=== PATIENT | male | born 1940 | race Caucasian/White ===

== ENCOUNTER 2018-08-07 09:27 | Inpatient (IN) | payer OTHER ==
[~2018-08-07] VITALS: Ht 167.6 cm; Wt 122.5 kg
[2018-08-07 09:35] VITALS: Ht 167.6 cm; Wt 122.5 kg
--- NOTE | 2018-08-07 09:49 | NUR ---
PT BIB [facility]. PER MEDIC PT FELT DIZZY AFTER GETTING UP THIS MORNING AND WAS FOUND ON THE FLOOR. PT AAOX3, NO S/S OF DISTRESS NOTED. PT STARTED ON NS PRIOR TO ARRIVAL. PT HAS APPEARS PALE AND SLOW TO RESPOND. PT HAS AN COLOSTOMY, DARK RED NOTED INSIDE OSTOMY BAG. PT STATES OSTOMY WAS PLACED A WEEK AGO AND WAS PRESCRIBED ANTIBIOTCS DUE TO INFECTION X 1 WEEK.
[2018-08-07 10:19] LABS: CARBON DIOXIDE 23.4 mmol/L (21-32); CHLORIDE SERUM 110 mmol/L (98-107); CREATININE SERUM 1.2 mg/dL (0.7-1.3); GLUCOSE SERUM 125 mg/dL (74-106); POTASSIUM SERUM 4.7 mmol/L (3.5-5.1); SODIUM SERUM 142 mmol/L (136-145)
[2018-08-07 10:23] LABS: ALKALINE PHOSPHATASE 190 U/L (46-116); ALT/SGPT 41 U/L (16-63); AST/SGOT 56 U/L (15-37); BILIRUBIN TOTAL 0.4 mg/dL (0.20-1.00)
[2018-08-07 10:26] LABS: ALBUMIN 2.3 g/dL (3.4-5.0); TOTAL PROTEIN, SERUM 5.6 g/dL (6.4-8.2)
[2018-08-07 10:33] LABS: BASOPHIL % 0.1 % (0-2)
[2018-08-07 10:34] LABS: PLATELET COUNT 532 x10^3mcL (130-400); RED CELL DISTRIBUTION WIDTH 18.4 % (11.5-14.5)
--- NOTE | 2018-08-07 10:58 | NUR ---
PT SITTING UP IN BED NO S/S OF DISTRESS NOTED. PT STATED HE WAS THIRSTY WATER WAS GIVEN TO PT.
--- NOTE | 2018-08-07 12:02 | NUR ---
PT TAKEN FOR ULTRA SOUND.
--- NOTE | 2018-08-07 12:11 | NUR ---
PT BACK FROM CT WITHOUT INCIDENCE.
--- NOTE | 2018-08-07 13:26 | NUR ---
PT SLEEPING IN BED, VISIBLE RISE AND FALL OF CHEST. PT EASILY AROUSABLE. NO S/S OF DISTRESS NOTED.
[2018-08-07] MEDS ORDERED: CIPRO500 MG PO (13:43)
[2018-08-07] MEDS ORDERED: TAMSULOSIN HCL0.4 MG PO (13:44)
[2018-08-07] MEDS ORDERED: ELIQUIS5 MG PO (13:45)
[2018-08-07] MEDS ORDERED: ATORVASTATIN CA40 M1 PO (13:45)
[2018-08-07] MEDS ORDERED: CLOPIDOGREL75 M1 PO (13:45)
[2018-08-07] MEDS ORDERED: ASPIR 8181 MG PO (13:46)
[2018-08-07] MEDS ORDERED: CARVEDILOL3.125 M1 PO (13:46)
[2018-08-07] MEDS ORDERED: STOOL SOFTENER100 MG PO (13:47)
--- NOTE | 2018-08-07 14:17 | NUR ---
PT PROVIDED WITH LUNCH TRAY, SITTING UP IN ED MICHELERSANJANA EATING, A/O X4, RESPS EVEN AND UNLABORED, NO DISTRESS NOTED.
--- NOTE | 2018-08-07 14:29 | NUR ---
DR. ALICEA AT BEDSIDE DISCUSSING TEST RESULTS AND PLAN OF CARE WITH PT.
--- NOTE | 2018-08-07 14:30 | NUR ---
REPORT GIVEN TO HILL MAYES RN.
[2018-08-07 15:37] VITALS: BP 113/69
--- NOTE | 2018-08-07 15:41 | NUR ---
AYDEN TELEPHONE ORDERED TYLENOL PO AND BENADRYL PO TO BE GIVEN BEFORE EACH UNIT TRANSFUSED AND LASIX 20 MG PO TO BE GIVEN AFTER EACH UNIT TRANSFUSED.
--- NOTE | 2018-08-07 15:44 | NUR ---
RECEIVED PT FROM ED VIA ALANNA. ORIENTED PT TO ROOM AND SURROUNDINGS. IV NOTED TO LAC PATENT AND INTACT. TELE 35 PLACED ON PT READING SR WITH DEPRESSED ST SEGMENT. INSTRUCTED PT ON THE USE OF CALL LIGHT FOR ASSISTANCE. ENDORSED PT TO PRIMARY NURSE RENETTA
--- NOTE | 2018-08-07 16:19 | NUR ---
PT RESTING IN BED, CALL LIGHT WITHIN REACH, NO RESPRIATORY DISTRESS NOTED, DENIES PAIN.
[2018-08-07 17:10] VITALS: BP 113/63
--- NOTE | 2018-08-07 17:10 | NUR ---
PATIENT RESTING IN BED, TYLENOL PO & BENADRYL PO GIVEN PRE TRANSFUSION. PRE TRANSFUSION VITAL SIGNS TAKEN. BLOOD TRANSFUSION INITIATED. WITNESSED BY RENETTA HALLMAN. BLOOD NOW TRANSFUSING, PATIENT EDUCATION ON S/S OF POSSIBLE ADVERSE REACTIONS AND TOLD TO INFORM NURSING STAFF IMMEDIATELY. WILL REMAIN IN ROOM FOR 15 MINS.
[2018-08-07 17:25] VITALS: BP 105/66
--- NOTE | 2018-08-07 17:25 | NUR ---
PATIENT IN BED, BLOOD TRANSFUSING. NO ADVERSE REACTIONS OBSERVED, DENIES PAIN, CHILLS, N/V. VITAL SIGNS STABLE. INCREASE BLOOD TRANSFUSION FROM 70 ML TO 100 ML/HR. WILL CONTINUE TO MONITOR.
--- NOTE | 2018-08-07 18:04 | NUR ---
PT RESTING IN BED, NO RESPIRATORY DSITRESS NOTED, DENIES PAIN, BLOOD TRANSFUSING WITHOUT INCIDENT. WITNESSED PT SIGN CONSENT FOR EGD, COLONOSCOPY, AND ANESTHESIA. PT A+OX4 AND AGRAABLE TO PROCEDURES. PT AWARE HE IS NPO. CALL LIGHT WITHIN REACH. BEDSIDE COMMODE PLACED AT BEDSIDE. PT EDUCATED ON FALL RISK AND NOT TO GET UP ALONE.
--- NOTE | 2018-08-07 18:11 | NUR ---
PT STATES THERE HAS BEEN NO OUTPUT FROM COLOSTOMY BAG IN SEVERAL DAYS.
--- NOTE | 2018-08-07 18:33 | NUR ---
REPORT GIVEN TO LAY HALLMAN ICU. ENDORSED ALL CARE.
--- NOTE | 2018-08-07 18:35 | NUR ---
RECEIVED REPORT FROM LUIS MIGUEL HALLMAN TO ASSUME CARE
--- NOTE | 2018-08-07 18:45 | NUR ---
RECEIVED PT FROM [facility] VIA [facility] ACCOMPANIED BY LUIS MIGUEL HALLMAN AND NING. PT WAS TRANSFERRED ONTO BED 5 WITH NO COMPLICATIONS. PT CONNECTED TO CRANE CHASER, VITALS READING: HR 75, BP 146/66 (86), RR 19, SPO2 100%, ORAL TEMP 97.5. PT IS A/OX4. SPEECH IS CLEAR. ABLE TO MAKE NEEDS KNOWN. ABLE TO FOLLOW COMMANDS. LUNGS SOUND CLEAR TO BUL AND DIMIN TO BLL. PT ON 2 L NC. BREATHING IS E/U. DENIES ANY SOB. SYMMETRICAL CHEST EXPANSION NOTED. PALPABLE PULSES X4 EXTREMETIES. SKIN IS COOL TO TOUCH. CAP REFILL < 3 SECS. NO EDEMA NOTED. LAC IV INTACT/SECURED/DRESSING CDI. PRBC INFUSING @ 100 ML/HR. GENERALIZED WEAKNESS. ACTIVE FULL ROM X4 EXTREMETIES. PT NPO. ABD IS SOFT, FLAT, NONTENDER TO PALPATION. BOWEL SOUNDS ACTIVE X 4 QUADRANTS. COLOSTOMY BAG NOTED WITH LOOSE BLOODY STOOL. SKIN IS INTACT. ECCHYMOSIS NOTED TO BUE. PT CALM AT THIS TIME. PT ORIENTED TO ROOM AND USE OF CALL LIGHT. BED IN LOW POSITION. WILL CONT TO MONITOR
[2018-08-07 19:05] VITALS: BP 123/64
--- NOTE | 2018-08-07 20:10 | NUR ---
PRBC BLOOD TRANSFUSION COMPLETED AT THIS TIME. POST INFUSION VITALS: TEMP 97.7, HR 74, BP 118/74, RR 14, SPO2 100%. NO ADVERSE REACTION NOTED. WILL CONT TO MONITOR
--- NOTE | 2018-08-07 20:18 | NUR ---
2ND UNIT OF PRBC INITIATED AT THIS TIME. WITNESSED BY KAREEN HALLMAN AND MYSELF. PRE INFUSION VITALS: TEMP 97.5, HR 62, BP 120/62, RR 18, SPO2 100%. WILL CONT TO MONITOR
--- NOTE | 2018-08-07 23:05 | NUR ---
PRBC INFUSION COMPLETED. POST INFUSION VITALS: TEMP 97.5, HR 62, BP 120/62, RR 18, SPO2 100%. NO ADVERSE REACTION NOTED. WILL CONT TO MONITOR
[2018-08-07 23:38] VITALS: BP 111/60
--- NOTE | 2018-08-08 00:20 | NUR ---
WARP CHANGER AT BEDSIDE
[2018-08-08 00:35] LABS: microscopic required? NO
[2018-08-08 00:42] LABS: UA SPECIFIC GRAVITY >=1.030 (1.005-1.035); urine erythrocyte NEGATIVE (NEGATIVE)
[2018-08-08 03:34] VITALS: BP 102/57
[2018-08-08 05:34] LABS: BASOPHIL % 0.3 % (0-2)
[2018-08-08 05:36] LABS: PLATELET COUNT 423 x10^3mcL (130-400)
[2018-08-08 05:37] LABS: RED CELL DISTRIBUTION WIDTH 20.2 % (11.5-14.5)
[2018-08-08 05:53] LABS: CALCIUM 7.9 mg/dL (8.5-10.1); CARBON DIOXIDE 24.3 mmol/L (21-32); CHLORIDE SERUM 110 mmol/L (98-107); CREATININE SERUM 1.1 mg/dL (0.7-1.3); GLUCOSE SERUM 85 mg/dL (74-106); MAGNESIUM 1.7 mg/dL (1.8-2.4); POTASSIUM SERUM 3.3 mmol/L (3.5-5.1); SODIUM SERUM 145 mmol/L (136-145)
[2018-08-08 06:25] LABS: rbc morphology (normal/abnorm) ABNORMAL (NORMAL)
[2018-08-08 06:29] LABS: acanthocyte (spur cell) 3+; ovalocyte/elliptocyte 1+; schistocyte (helmet cell) 1+
--- NOTE | 2018-08-08 07:13 | NUR ---
REPORT GIVEN TO LESVIA HALLMAN TO ASSUME CARE
[2018-08-08 07:20] VITALS: BP 117/57
--- NOTE | 2018-08-08 07:20 | NUR ---
THE PATIENT AWAKE AND ORIENTED TO PERSON, PLACE AND TIME. THE PATIENT DENIED SHORTNESS OF BREATH, NAUSEA/VOMITING OR PAIN AT THIS TIME. IVF NS RUNNING AT 100CC/HR. VIA HL TO LAC. ANOTHER HL TO RFA. TELE # 5 READS NORMAL SINUS RHYTHMS. COLOSTOMY WITH WATERY STOOL. CALL LIGHT WITHIN REACH. SIDE RAILS UP X3. BED WAS AT LOWEST POSITION. ALARM WAS ON.
--- NOTE | 2018-08-08 08:57 | NUR ---
DR. DECKER IN TO SEE THE PATIENT.
--- NOTE | 2018-08-08 09:07 | NUR ---
GI NURSES WERE AT BEDSIDE SETTING UP MACHINES FOR EGD AND COLONOSCOPY.
--- NOTE | 2018-08-08 09:45 | NUR ---
THE PATIENT WAS DROWSY AND RESTING IN BED S/P COLONOSCOPY AND EGD. THE PATIENT WAS RESPONSIVE TO VERBAL STIMULUS; DENIED ANY DISCOMFORT AND BACK TO SLEEP. TELE MONITOR SHOWS SINUS BRADYCARDIA WITH HR 55 OR ABOVE.
[2018-08-08 11:10] VITALS: BP 109/53
--- NOTE | 2018-08-08 13:10 | NUR ---
REPORT WAS GIVEN VIJI ROJAS TO [facility] UNIT. CONCERNS WERE ADDRESSED.
--- NOTE | 2018-08-08 13:40 | NUR ---
THE PATIENT WAS TRANSFERRED TO ROOM 238A ON [facility] VIA BED IN STABLE CONDITION. ALL BELONGINGS WERE SENT TO THE ROOM WITH THE PATIENT.
--- NOTE | 2018-08-08 14:05 | NUR ---
RECEIVED PT FROM ICU, PT IS A/O X4, VERBAL RESPONSIVE, ABLE TO TELL WHAT HE NEEDS. LUNG SOUND CLEAR BILATERAL, NO COUGH, DENY ANY SOB AT THIS TIME, PT IS ON 2L/MIN O2 VIA NC/ PO2 96%, PT DENY ANY CHEST PAIN OR DISCOMFORT, BOWEL SOUND PRESENT ALL 4 QUADRANTS, NO DISTENTION, PT HAS COLOSTOMY BAG, ALL WATERY STOOL NOTED. NO BLEEDING. PEDAL PULSE PRESENT BOTH FEET, NO EDEMA, IV AT RIGHT FA, AND LEFT AC, NO LEAKING, NO INFILTARATION. ALL ADLS ASSIST, ALL NEED MET, CALL LIGHT IN REACH, WILL CONITNUE TO MONITOR.
--- NOTE | 2018-08-08 16:49 | NUR ---
PT C/O HAS 1 EPISODE OF GI BLEEDING. CALLED DR. OLSON, WENT TO HOME CHECK THE PT AT ONCE. WILL CONTINUE TO MONITOR.
[2018-08-08 17:30] VITALS: BP 106/61
--- NOTE | 2018-08-08 18:16 | NUR ---
1730: ASSUMED CARE OF PT. 1810: PT VOICES THAT HE WILL NOT TAKE ANY MEDICATION DUE TO DR'S INSTRUCTION. DR. SPEARS CALLED, ORDERED CLEARED, ADVISED PT NOT TO TAKE ANTICOAGULATS ONLY. INFORMATION RELAYED TO PT. PT AGREES TO TAKE IRON MEDICATION. BENEFITS EXPLAINED TO PT, SIDE EFFECTS, AND INDICATION. PT IN HIGH FOWLERS, DENIES ANY DISCOMFORT, IV SITES TO RFA#20 INFUSING WELL NS 50ML/HR. LAC#20 FLUSHES WELL. EFFORTLESS BREATHING ON 2LPM NASAL CANULA. COLOSTOMY BAG IN PLACE, NO EXTERNAL DRAINAGE NOTED. ULTRASOUND OF BLE COMPLETED. CALL LIGHT WITHIN REACH.
--- NOTE | 2018-08-08 19:50 | NUR ---
PT. AWAKE, ALERT, APPEARS TO BE VERY WEAK. PT. STATED THAT HE OS FATIGUED AND WEAK ALSO. ORIENTED X4. DENIES HEADACHE OR DIZZINESS, SPEECH CLEAR. CONVERSSATION APPROPRIATE. BREATH SOUNDS CLEAR THROUGHOUT LUNG ABURTO, RESP. EVEN, UNLABORED. BLL SLIGHTLY DIMINISHED. PT. ON RA AT THIS TIME. DENIES SOB. PT. ON TELE 6, NSR, DENIES CHESTPAIN OR DISCOMFORT. IV SITE INTACT. NO EDEMA NOTED TO EXTREMITY. PEDAL PULSES STRONG BLE. ABD. SOFT AND FLAT, COLOSTOMY TO DRAINAGE BAG, STOMA APPEARS BEEFY RED. DRAINAGE DARK BROWN, LOOSE. PT. ENCOURAGED TO CALL FOR HELP BEFORE GETTING OOB. BED LOW LAYING W/ ALARM ON. CALL LIGHT WITHIN REACH.
[2018-08-08 20:38] VITALS: BP 97/59
--- NOTE | 2018-08-09 00:26 | NUR ---
PT. SLEEPING. NO COMPLAINTS THUS FAR. NO ACTIVE GI BLEEDING NOTED. WILL CONTINUE TO MONITOR. CALL LIGHT WITHIN REACH.
--- NOTE | 2018-08-09 04:42 | NUR ---
ALERTED BY SHIP PILOT DISPATCHER THAT THE PT.'SEART MONITOR WAS OFF LINE. UPON CHECKING ON PT, TELE MONITOR WAS NOTED AT THE SIDE OF HIS BED AND DISCONNECTED FROM HIM. I INFORMED THE PT. THAT I NEEDED TO REPLACE HIS MONITOR AND PLACE NEW ELECTRODES. HIS IV CATH WAS ALSO NOTED TO BE OUT OF HIS ARM. SITE WITH SMALL TRICKLE OF BLOOD, ALREADY. PT. STATED THAT HE WAS GOING HOME AND DIDN'T NEED HIS MONITOR OR IV. PT.'S MENTAL STATUS ASSESSED FOR DISORIENTATION OR CONFUSION. PT. IS VERY MUCH ALERT AND ORIENTED X4. PT. ALSO STATED THAT HE KNOWS WHAT HE IS DOING. PT. STATED THAT HE NEEDS TO GO HOME AT 0700 THIS MORNING AND STATED THAT HE WILL BE BACK ON WEDNESDAY. 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 PT. I OFFERED TO REPLACE MONITOR AND IV, TRIED ENCOURAGING THE PT. TO WAIT FOR ROUNDS THIS MORNING. PT. REFUSED IV AND TELE. DR. LOMAX MADE AWARE, CHARGE NURSE MADE AWARE AND SHIP PILOT DISPATCHER MADE AWARE.
[2018-08-09 05:25] VITALS: BP 101/55
--- NOTE | 2018-08-09 06:15 | NUR ---
PT. DRESSED HIMSELF IN HIS OWN CLOTHES. ATTEMPT TO PLACE HIS TELE MONITOR BACK ON, UNSUCCESSFUL. NO ORDERS OR COMMUNICATION OBTAUNED FROM DR. LOMAX REGARDING EARLIER EVENTS WHEN HE REMOVED HIS IV CATH AND HEART MONITOR. PT. ENCOURAGED TO WAIT UNTIL ROUNDS. WILL CONTINUE TO MONITOR. WILL ENDORSE PT. CARE TO INCOMING NURSE.
--- NOTE | 2018-08-09 06:51 | NUR ---
PT. FULLY DRESSED AND STATED THAT HE WAS READY TO LEAVE. PT. ADVICED AGAIN ABOUT THE PRO'S AND CON OF LEAVING AMA. DR. MOREIRA, WHO RESPONDEDE TO PUBLIC SPEAKER'S PHONE, MADE AWARE. CHARGE IS ALSO AWARE. PT. GIVEN AMA FORM, WHICH HE SIGNED. NAME BANDS REMOVED, INCLUSING BLOOD BAND. PT. LEFT BY HIMSELF WALKING. WHEN ASKED IF HE HAS SOMEONE TO PICK HIM UP, PT. STATED THAT THEY WOULD BE HERE FOR HIM AT 0700.
== END 2018-08-09 06:47 | disposition left against medical advice (07) | DRG 374 ==
LOC: ED 09:27 → IC 13:36 → DU 13:36 → IC 15:15 → DU 15:15 → IC 18:46 → DU 08-08 13:49
PROVIDERS: Emergency Medicine; Internal Medicine Gastroenterology; ADMIT Internal Medicine
PROC: 30233N1 Transfusion of Nonautologous Red Blood Cells into Peripheral Vein, Percutaneous Approach (ICD-10-PCS; 2018-08-07)
PROC: 0DJ08ZZ Inspection of Upper Intestinal Tract, Via Natural or Artificial Opening Endoscopic (ICD-10-PCS; principal; 2018-08-08 09:00)
PROC: 0W3P8ZZ Control Bleeding in Gastrointestinal Tract, Via Natural or Artificial Opening Endoscopic (ICD-10-PCS; 2018-08-08 09:00)
DX: C18.5 Malignant neoplasm of splenic flexure (principal); E43 Unspecified severe protein-calorie malnutrition; N17.0 Acute kidney failure with tubular necrosis; C79.89 Secondary malignant neoplasm of other specified sites; K92.2 Gastrointestinal hemorrhage, unspecified; C78.7 Secondary malignant neoplasm of liver and intrahepatic bile duct; E86.0 Dehydration; D50.0 Iron deficiency anemia secondary to blood loss (chronic); E87.6 Hypokalemia; E83.42 Hypomagnesemia; I95.9 Hypotension, unspecified; K21.9 Gastro-esophageal reflux disease without esophagitis; I25.2 Old myocardial infarction; Z93.3 Colostomy status; Z68.20 Body mass index [BMI] 20.0-20.9, adult; Z86.711 Personal history of pulmonary embolism; Z95.5 Presence of coronary angioplasty implant and graft
CPT/HCPCS: 43235; 45378; 83880; C9113; J1200; J1610; J2250; J2310; J2916; J3010; J3490; J7030; J7040; J7050; P9016; Q0092; Q0163